=== PATIENT | male | born 1995 | race Caucasian/White ===

== ENCOUNTER 2018-10-25 13:27 | Emergency (ER) | payer BC, SELFPAY ==
[2018-10-25 13:47] VITALS: BP 126/57; PULSE 69; RESP 18; TEMP 36.5; O2SAT 97
--- NOTE | 2018-10-25 15:01 | W.ED.GENAD ---
Discharge Plan Disposition Patient Disposition: HOME Condition: Fair Discharge Details Chief Complaint: EyeProblem Clinical Impression: Abrasion, corneal, Foreign body in eye Reason For Visit: ? pink eye Primary Care Provider: Sunita,Local ED Provider: Riana Watkins Home Meds and New Rx's Prescriptions: No Action zolpidem [Ambien] 5 mg Tablet 5 mg PO RF: 0 Discharge Instructions Instructions: Erythromycin (Into the eye), Corneal Abrasion (ED) Additional Instructions: He erythromycin ointment as directed by nursing staff to your left eye 4 times daily for the next 5 days to help prevent infection. Please contact [facility] Saturday to schedule follow up for reevaluation and ensure healing. If you develop fever/chills, increased pain, discharge, visual changes or other new/worsening symptoms please seek care urgently once again. Discharge Data Discharge Date/Time-TO BE ENTERED AT DEPARTURE: 10/25/18 15:55 Medical Decision Making Patient is a 22-year-old male presenting today with chief complaint of irritation and foreign body sensation to the left eye. He reports a sensation began yesterday but seemed to worsen today. He reports that this morning when he woke up it was crusted shut. Was concerned for possible conjunctivitis. Was advised by pharmacist to be evaluated here. Patient denies any visual changes. Feels that he has scratching in the eye and a foreign body sensation. Denies any known trauma. States he was hiking yesterday but does not know of any foreign body material becoming lodged in the eye. Patient does not wear any corrective lenses. Plan to stain and evaluate the eye Regarding patient's eyelids, body was noted. Instilled tetracaine which helped with symptomatic management. Then instilled fluorescein dye. This was explored under slit-lamp. A small piece of what appears to be dirt was noted at the 10 o'clock position just lateral to the pupil. I was able to remove this with a Q-tip. Small corneal abrasion is noted inferior to this. Patient will be placed on erythromycin ophthalmic ointment. We discussed new/worsening symptoms when to seek care urgently once again. I advised follow-up with import export manager, he will contact [facility] Saturday to schedule prompt follow-up appointment for corneal abrasion and foreign body. I have also asked her care according to help facilitate follow-up. All of his questions and concerns were addressed and he is in agreement with this plan HPI General Mode of arrival: ambulatory. Date/Time Provider Initiated Documentation: 10/25/18 15:01. Limitations to Documentation: no limitations. Information obtained by: patient. History of Present Illness 22 year old M presents to the emergency department with the chief complaint of left eye injected, irritated, described as mild, Quality is described as other (scratchy with FB sensation), and is localized to the eyes. Patient reports no radiation. Patient started experiencing this day(s) (1) and it has been constant. other things that improve symptom(s), (has been using OTC drops which have helped with symptomatic management) No exacerbating factors reported . Patient notes no other symptoms.. Related Data Home Medications Medication Instructions Recorded Confirmed zolpidem [Ambien] 5 mg PO 10/25/18 Allergies Allergy/AdvReac Type Severity Reaction Status Date / Time No Known Allergies Allergy Unverified 10/25/18 13:51 General Stated Complaint: EyeProblem ALEXY: 4 Review of Systems Constitutional Reports as per HPI, Denies chills, Denies fever(s) and Denies headache(s) Eyes Reports as per HPI, Denies change in vision, Reports eye discharge (awoke with eye crusted this AM), Reports irritation, Denies itchy eyes and Denies eye pain (denies pain but feels irritated, has FB sensation) ENT Reports as per HPI, Denies headache(s), Denies nasal congestion, Denies nasal discharge and Denies sore throat Cardiovascular Reports as per HPI, Denies chest pain and Denies dyspnea Respiratory Denies cough and Denies dyspnea Gastrointestinal Reports as per HPI, Denies abdominal pain, Denies change in bowel habits, Denies nausea and Denies vomiting Integumentary/Breasts Reports as per HPI and Denies rash Neurologic Denies headache(s) Allergic/Immunologic Denies itchy eyes [facility] Social History Smoking/Tobacco Use Status: Never Exam Const General: cooperative, healthy appearing, comfortable, no acute distress, well developed and well groomed Nutritional Appearance: average body habitus and well nourished Orientation: alert and awake [facility] Head: normal to inspection, normocephalic and atraumatic Ears: hearing grossly normal bilaterally General nose exam: external nose normal Face and sinus: normal facial exam, sinuses nontender and face symmetric Mouth: oral mucosae normal, lip normal, tongue normal, oropharynx normal and moist mucous membranes Eyes Alignment and Position: alignment normal and position normal Periorbital: periorbital findings normal Eyelids: eyelids normal Conjunctivae: conjunctival abnormality left conjunctival injection diffuse and discharge (tearing) Pupils: PERRL, normal by confrontation and accommodation normal EOM: EOM intact bilaterally Neck Neck: normal visual inspection, full ROM, no lymphadenopathy and no meningeal signs Resp Effort & Inspection: normal respiratory effort, able to speak in complete sentences and no respiratory distress Auscultation: clear to auscultation bilaterally, no rales, no rhonchi and no wheezes Cardio Rate: regular rate Rhythm: regular rhythm Heart Sounds: S1 normal and S2 normal Skin General skin exam: no rashes or lesions noted Neuro General: alert and awake Cognition: normal cognition Speech: speech normal Gait: normal gait Psych Appearance: grossly normal and well kempt Mental Status: mental status grossly normal Speech and Movement: speech and movement normal Course Vital Signs Temperature 36.5 C 10/25/18 13:47 Pulse 69 10/25/18 13:47 Respiratory Rate 18 10/25/18 13:47 Blood Pressure 126/57 L 10/25/18 13:47 Pulse Oximetry 97 10/25/18 13:47 Temperature 36.5 C 10/25/18 13:47 Temperature Source Temporal Artery Scan 10/25/18 13:47 Pulse 69 10/25/18 13:47 Respiratory Rate 18 10/25/18 13:47 Blood Pressure 126/57 L 10/25/18 13:47 Blood Pressure Position Sitting 10/25/18 13:47 Pulse Oximetry 97 10/25/18 13:47 Oxygen Delivery Method Room Air 10/25/18 13:47 Oxygen Flow Rate 0 10/25/18 13:47
--- NOTE | 2018-10-25 15:13 | ED.GENADUL_ITS ---
Discharge Plan Disposition Patient Disposition: HOME Condition: Fair Discharge Details Chief Complaint: EyeProblem Clinical Impression: Abrasion, corneal, Foreign body in eye Reason For Visit: ? pink eye Primary Care Provider: Sunita,Local ED Provider: Riana Watkins Home Meds and New Rx's Prescriptions: No Action zolpidem [Ambien] 5 mg Tablet 5 mg PO RF: 0 Discharge Instructions Instructions: Erythromycin (Into the eye), Corneal Abrasion (ED) Additional Instructions: He erythromycin ointment as directed by nursing staff to your left eye 4 times daily for the next 5 days to help prevent infection. Please contact [facility] Saturday to schedule follow up for reevaluation and ensure healing. If you develop fever/chills, increased pain, discharge, visual changes or other new/worsening symptoms please seek care urgently once again. Discharge Data Discharge Date/Time-TO BE ENTERED AT DEPARTURE: 10/25/18 15:55 Medical Decision Making Patient is a 22-year-old male presenting today with chief complaint of irritation and foreign body sensation to the left eye. He reports a sensation began yesterday but seemed to worsen today. He reports that this morning when he woke up it was crusted shut. Was concerned for possible conjunctivitis. Was advised by pharmacist to be evaluated here. Patient denies any visual changes. Feels that he has scratching in the eye and a foreign body sensation. Denies any known trauma. States he was hiking yesterday but does not know of any foreign body material becoming lodged in the eye. Patient does not wear any corrective lenses. Plan to stain and evaluate the eye Regarding patient's eyelids, body was noted. Instilled tetracaine which helped with symptomatic management. Then instilled fluorescein dye. This was explored under slit-lamp. A small piece of what appears to be dirt was noted at the 10 o'clock position just lateral to the pupil. I was able to remove this with a Q-tip. Small corneal abrasion is noted inferior to this. Patient will be placed on erythromycin ophthalmic ointment. We discussed new/worsening symptoms when to seek care urgently once again. I advised follow- up with internal sales engineer, he will contact [facility] Saturday to schedule prompt follow-up appointment for corneal abrasion and foreign body. I have also asked her care according to help facilitate follow-up. All of his questions and concerns were addressed and he is in agreement with this plan HPI General Mode of arrival: ambulatory . Date/Time Provider Initiated Documentation: 10/25/18 15:01 . Limitations to Documentation: no limitations . Information obtained by: patient . History of Present Illness 22 year old M presents to the emergency department with the chief complaint of left eye injected, irritated, described as mild, Quality is described as other (scratchy with FB sensation), and is localized to the eyes. Patient reports no radiation. Patient started experiencing this day(s) (1) and it has been constant. other things that improve symptom(s), (has been using OTC drops which have helped with symptomatic management) No exacerbating factors reported . Patient notes no other symptoms.. Related Data Home Medications Medication Instructions Recorded Confirmed zolpidem [Ambien] 5 mg PO 10/25/18 Allergies Allergy/AdvReac Type Severity Reaction Status Date / Time No Known Allergies Allergy Unverified 10/25/18 13:51 General Stated Complaint: EyeProblem ALEXY: 4 Review of Systems Constitutional Reports as per HPI, Denies chills, Denies fever(s) and Denies headache(s) Eyes Reports as per HPI, Denies change in vision, Reports eye discharge (awoke with eye crusted this AM), Reports irritation, Denies itchy eyes and Denies eye pain (denies pain but feels irritated, has FB sensation) ENT Reports as per HPI, Denies headache(s), Denies nasal congestion, Denies nasal discharge and Denies sore throat Cardiovascular Reports as per HPI, Denies chest pain and Denies dyspnea Respiratory Denies cough and Denies dyspnea Gastrointestinal Reports as per HPI, Denies abdominal pain, Denies change in bowel habits, Denies nausea and Denies vomiting Integumentary/Breasts Reports as per HPI and Denies rash Neurologic Denies headache(s) Allergic/Immunologic Denies itchy eyes [facility] Social History Smoking/Tobacco Use Status: Never Exam Const General: cooperative, healthy appearing, comfortable, no acute distress, well developed and well groomed Nutritional Appearance: average body habitus and well nourished Orientation: alert and awake [facility] Head: normal to inspection, normocephalic and atraumatic Ears: hearing grossly normal bilaterally General nose exam: external nose normal Face and sinus: normal facial exam, sinuses nontender and face symmetric Mouth: oral mucosae normal, lip normal, tongue normal, oropharynx normal and moist mucous membranes Eyes Alignment and Position: alignment normal and position normal Periorbital: periorbital findings normal Eyelids: eyelids normal Conjunctivae: conjunctival abnormality left conjunctival injection diffuse and discharge (tearing) Pupils: PERRL, normal by confrontation and accommodation normal EOM: EOM intact bilaterally Neck Neck: normal visual inspection, full ROM, no lymphadenopathy and no meningeal signs Resp Effort & Inspection: normal respiratory effort, able to speak in complete sentences and no respiratory distress Auscultation: clear to auscultation bilaterally, no rales, no rhonchi and no wheezes Cardio Rate: regular rate Rhythm: regular rhythm Heart Sounds: S1 normal and S2 normal Skin General skin exam: no rashes or lesions noted Neuro General: alert and awake Cognition: normal cognition Speech: speech normal Gait: normal gait Psych Appearance: grossly normal and well kempt Mental Status: mental status grossly normal Speech and Movement: speech and movement normal Course Vital Signs Temperature 36.5 C 10/25/18 13:47 Pulse 69 10/25/18 13:47 Respiratory Rate 18 10/25/18 13:47 Blood Pressure 126/57 L 10/25/18 13:47 Pulse Oximetry 97 10/25/18 13:47 Temperature 36.5 C 10/25/18 13:47 Temperature Source Temporal Artery Scan 10/25/18 13:47 Pulse 69 10/25/18 13:47 Respiratory Rate 18 10/25/18 13:47 Blood Pressure 126/57 L 10/25/18 13:47 Blood Pressure Position Sitting 10/25/18 13:47 Pulse Oximetry 97 10/25/18 13:47 Oxygen Delivery Method Room Air 10/25/18 13:47 Oxygen Flow Rate 0 10/25/18 13:47
[2018-10-25] MEDS: Tetracaine 0.5% 4 ML BTL OP (15:15)
[2018-10-25] MEDS: Fluorescein STRIPS 100/BOX 1 MG OP (15:15)
[2018-10-25] MEDS: Erythromycin Ophth Oint 3.5 GM TUBE OS (15:45)
--- NOTE | 2018-10-27 12:17 | CMPROGNOTE_ITS ---
Care Management Progress Note 10/27-Riana MCNAMARA requested assistance with a [facility] f/u on Saturday/Saturday for corneal abrasion, foreign body. Referral, demographics, and provider note faxed to [facility] this am.
== END 2018-10-25 15:55 | disposition home or self-care (01) ==
PROVIDERS: Emergency Provider Physician Assistant
DX: S05.02XA Injury of conjunctiva and corneal abrasion without foreign body, left eye, initial encounter (principal); X58.XXXA Exposure to other specified factors, initial encounter
CPT/HCPCS: 99283

== ENCOUNTER 2018-12-23 21:03 | Emergency (ER) | payer OTHER, SELFPAY ==
[2018-12-23 21:11] VITALS: BP 135/67; PULSE 86; RESP 16; TEMP 36.8
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
== END 2018-12-23 21:30 | disposition home or self-care (01) ==
PROVIDERS: Emergency Provider Emergency Medicine
DX: S16.1XXA Strain of muscle, fascia and tendon at neck level, initial encounter (principal); V43.52XA Car driver injured in collision with other type car in traffic accident, initial encounter
CPT/HCPCS: 99282

== ENCOUNTER 2019-03-19 18:21 | Emergency (ER) | payer BC, SELFPAY ==
[2019-03-19 18:24] VITALS: BP 110/74; PULSE 65; RESP 18; TEMP 36.8
[2019-03-19] MEDS: Balanced Salt Solution 15 ML BTL OP (19:32)
--- NOTE | 2019-03-19 20:15 | ED.GENADUL_ITS ---
Discharge Plan Disposition Patient Disposition: HOME Condition: Stable Discharge Details Chief Complaint: EyeProblem Clinical Impression: Foreign body of left external eye Primary Care Provider: [facility] Provider: Jamar Quiroga Home Meds and New Rx's Prescriptions: Continued zolpidem [Ambien] 5 mg Tablet 5 mg PO HS RF: 0 fluvoxamine 150 mg Capsule,Extended Release 24hr 150 mg PO DAILY RF: 0 Discharge Instructions Instructions: Corneal Abrasion (ED) Additional Instructions: Please use the provided ointment 4 times daily for the next 3 to 5 days. If not improving over the next couple days please follow-up with [facility] for reassessment or return to the emergency department for any new or significant worsening of symptoms Referrals: [facility] [Outside] Discharge Data Discharge Date/Time-TO BE ENTERED AT DEPARTURE: 03/19/19 20:43 Medical Decision Making Foreign body sensation in left eye, patient does state working outside in dust and debris but denies any known foreign body getting in his eye. Patient states during his wait for my assessment he does feel like the foreign body did come out but still has slightly irritation to the eye. Eye exam is unremarkable except for some very slight linear dye uptake on the conjunctive in the 7:00 and 6 o'clock position. No foreign body was noted. Patient placed up on erythromycin ointment and return precautions were discussed. HPI General Mode of arrival: ambulatory . Date/Time Provider Initiated Documentation: 03/19/19 18:27 . Limitations to Documentation: no limitations . Information obtained by: patient and RN notes reviewed . History of Present Illness 23 year old M presents to the emergency department with the chief complaint of left eye foreign body, described as moderate, with intensity rated at 4. Quality is described as aching, and is localized to the eyes and left. Patient reports no radiation. Patient started experiencing this hour(s) (2) and it has been constant. Patient notes no other symptoms.. Patient did receive the following treatments prior to arrival, none Related Data Home Medications Medication Instructions Recorded Confirmed zolpidem [Ambien] 5 mg PO HS 10/25/18 03/19/19 fluvoxamine 150 mg PO DAILY 12/23/18 03/19/19 Allergies Allergy/AdvReac Type Severity Reaction Status Date / Time No Known Allergies Allergy Unverified 12/23/18 21:10 General Stated Complaint: EyeProblem ALEXY: 4 Review of Systems Constitutional Denies headache(s) Eyes Reports as per HPI, Denies change in vision, Denies eye discharge, Reports eye pain and Denies photophobia ENT Denies facial pain and Denies headache(s) Neurologic Denies headache(s) and Denies other visual disturbances PFSH Social History Smoking/Tobacco Use Status: Never Alcohol Intake: never Drug use: Never Substance use type: does not use Do you feel safe at home: Yes Do you feel safe in your relationship?: Yes Exam Const General: cooperative, no acute distress and not ill appearing Orientation: alert, awake and oriented x3 Eyes General: appearance normal, both eyes and all related structures Visual Bhagat: normal visual bhagat by confrontation Periorbital: periorbital findings normal Conjunctivae: conjunctival abnormality left other (Linear dye uptake 6 & 7 o'clock ) Sclera: sclerae normal Cornea: corneas normal and fluorescein used Pupils: PERRL, normal by confrontation and accommodation normal EOM: EOM intact bilaterally and No nystagmus Resp Effort & Inspection: normal respiratory effort, able to speak in complete sentences and no respiratory distress Neuro Cranial Nerves: no nystagmus Course Vital Signs Temperature 36.8 C 03/19/19 18:24 Pulse 65 03/19/19 18:24 Respiratory Rate 18 03/19/19 18:24 Blood Pressure 110/74 03/19/19 18:24 Temperature 36.8 C 03/19/19 18:24 Temperature Source Temporal Artery Scan 03/19/19 18:24 Pulse 65 03/19/19 18:24 Respiratory Rate 18 03/19/19 18:24 Blood Pressure 110/74 03/19/19 18:24 Blood Pressure Position Sitting 03/19/19 18:24 Oxygen Delivery Method Room Air 03/19/19 18:24 Oxygen Flow Rate 0 03/19/19 18:24
== END 2019-03-19 20:43 | disposition home or self-care (01) ==
PROVIDERS: Emergency Provider Nurse Practitioner Family
DX: T15.92XA Foreign body on external eye, part unspecified, left eye, initial encounter (principal)
CPT/HCPCS: 99283

== ENCOUNTER 2019-07-03 13:11 | Emergency (ER) | payer BC, SELFPAY ==
[2019-07-03 13:13] VITALS: BP 132/68; PULSE 66; RESP 16; TEMP 36.3; O2SAT 100
--- NOTE | 2019-07-03 14:14 | W.ED.GENAD ---
Discharge Plan Disposition Patient Disposition: HOME Discharge Details Chief Complaint: RashLesion Clinical Impression: Rash [facility] Manish Benavides Home Meds and New Rx's Prescriptions: New diphenhydramine HCl [Benadryl] 25 mg capsule 25 mg PO TID PRN (Reason: itching) Qty: 30 RF: 0 Continued zolpidem [Ambien] 5 mg Tablet 5 mg PO HS RF: 0 fluvoxamine 150 mg Capsule,Extended Release 24hr 150 mg PO DAILY RF: 0 Discharge Instructions Instructions: Acute Rash (ED) Additional Instructions: Take Benadryl 25 mg by mouth every 8 hours as needed for itching. Please contact your primary care physician to arrange follow-up. Return to the ER for any worsening or new concerning symptoms. Discharge Data Discharge Date/Time-TO BE ENTERED AT DEPARTURE: 07/03/19 14:37 Medical Decision Making 23-year-old male here with fine red itchy rash flanks, groin, upper extremities. Patient is afebrile. He does have recent mild URI symptoms. Consider viral rash. Consider also mild allergic reaction or contact dermatitis. Plan to treat with Benadryl. I encouraged him to follow-up with his primary care physician and instructed him to return immediately should have any worsening or new concerning symptoms. HPI General Mode of arrival: ambulatory. Date/Time Provider Initiated Documentation: 07/03/19 13:41. Limitations to Documentation: no limitations. Information obtained by: patient. HPI Narrative: 23-year-old male presents with chief complaint of rash. Patient notes that over the past day he has had a itchy rash involving his arms, bilateral flanks, groin and upper legs. Patient notes rash is itchy. Patient also notes he has runny nose and mild sore throat over the past day. Denies fever. Patient denies any new foods, exposure to new potential allergens. No new fragrances or soaps. Patient does note he did recently return from a 10-day canoe hiking trip where he did not shower and was wearing dirty clothes. He denies tick bite or any known insect bite. Related Data Home Medications Medication Instructions Recorded Confirmed zolpidem [Ambien] 5 mg PO HS 10/25/18 07/03/19 fluvoxamine 150 mg PO DAILY 12/23/18 07/03/19 diphenhydramine HCl [Benadryl] 25 mg PO TID PRN #30 cap 07/03/19 Previous Rx's Medication Instructions Recorded diphenhydramine HCl [Benadryl] 25 mg PO TID PRN #30 cap 07/03/19 Allergies Allergy/AdvReac Type Severity Reaction Status Date / Time No Known Allergies Allergy Unverified 07/03/19 13:17 General Stated Complaint: RashLesion ALEXY: 4 Review of Systems Review of Systems ROS Unobtainable: All systems reviewed & are unremarkable except as noted in HPI and below Constitutional Constitutional: Denies fever(s) ENT Ears, Nose, Mouth, and Throat: Reports as per HPI Cardiovascular Cardiovascular: Denies dyspnea Respiratory Respiratory: Denies dyspnea Genitourinary Genitourinary: Denies genital lesions, Denies genital pain, Denies penile discharge and Denies scrotal swelling Integumentary/Breasts Skin/Breast: Reports as per HPI and Reports rash [facility] Social History Smoking/Tobacco Use Status: Never Alcohol Intake: never Drug use: Never Substance use type: does not use Do you feel safe at home: Yes Do you feel safe in your relationship?: Yes Exam Const General: cooperative and no acute distress HENMT Head: normocephalic and atraumatic Mouth: moist mucous membranes Throat: uvula midline and posterior oropharynx abnormal erythema (Mild); no cobblstoning, no edema and no exudates Eyes Conjunctivae: normal conjunctivae Sclera: normal sclerae Neck Neck: trachea midline and supple Resp Auscultation: clear to auscultation bilaterally, no rales, no rhonchi and no wheezes Cardio Jugular venous pressure: no JVD Rate: regular rate and not tachycardic Rhythm: regular rhythm GI Palpation: soft, not firm, no guarding, no masses, not rigid and nontender Skin Rashes: rashes noted (Fine red papules in her arms, groin, flanks) Neuro General: alert, awake and tone normal Extrem General: no edema Psych Appearance: grossly normal Course Vital Signs Vital signs: Vital Signs Temperature 36.3 C L 07/03/19 13:13 Pulse 66 07/03/19 13:13 Respiratory Rate 16 07/03/19 13:13 Blood Pressure 132/68 07/03/19 13:13 Pulse Oximetry 100 07/03/19 13:13 Temperature 36.3 C L 07/03/19 13:13 Temperature Source Skin 07/03/19 13:13 Pulse 66 07/03/19 13:13 Respiratory Rate 16 07/03/19 13:13 Respiratory Effort Non-Labored 07/03/19 13:18 Blood Pressure 132/68 07/03/19 13:13 Blood Pressure Position Sitting 07/03/19 13:13 Pulse Oximetry 100 07/03/19 13:13 Oxygen Delivery Method Room Air 07/03/19 13:13 Oxygen Flow Rate 0 07/03/19 13:13
[2019-07-03] MEDS: diphenhydrAMINE 25 MG CAP PO (14:19)
[2019-07-03 14:35] VITALS: BP 132/68; PULSE 66; RESP 16; O2SAT 100
== END 2019-07-03 14:37 | disposition home or self-care (01) ==
PROVIDERS: Emergency Provider Student in an Organized Health Care Education/Training Program
DX: R21 Rash and other nonspecific skin eruption (principal)
CPT/HCPCS: 99283

== ENCOUNTER 2020-05-03 19:22 | Emergency (ER) | payer BC, SELFPAY ==
[2020-05-03 19:28] VITALS: BP 161/95; PULSE 71; RESP 14; TEMP 36.2; O2SAT 98
--- NOTE | 2020-05-03 19:30 | DI.CT_ITS ---
EXAM: CT ABDOMEN PELVIS W CLINICAL HISTORY: right lower abdominal pain TECHNIQUE: COMPARISON: No exams were available for comparison FINDINGS: CT examination of the abdomen and pelvis was performed with bolus infusion of 100 cc of Omnipaque 350 There is bilateral L4 spondylolysis without significant spondylolisthesis. Images obtained through th e lung bases are unremarkable. The liver and spleen appear normal as does the pancreas. Gallbladder and bile ducts are unremarkable. Adrenals appear normal bilaterally. Kidneys appear normal with no evidence of renal mass, hydronephro sis, or nephrolithiasis There is marked urinary bladder distention, uncertain etiology. There is no evidence of abdominal or pelvic adenopathy. Abdominal aorta is of normal diameter and no major vascular abnormality is seen. Appendix is normal. No evidence diverticulitis or bowel obstruction. No significant abdominal wall hernia seen. Impression: Negative examination of the abdomen and pelvis except for marked urinary bladder distention. Please c orrelate clinically. RADIATION DOSE DELIVERED: 736.36mGy.cm Total DLP DATA REPOSITORY: All CT scans at this facility are submitted to the National Radiology Data Registry (NRDR) Dose Index Registry (DIR) with the [employer] (A[employer]). RADIATION OPTIMIZATION: All CT scans at this facility use at least one of these dose optimization te chniques: automated exposure control; mA and/or kV adjustment per patient size (includes targeted exa ms where dose is matched to clinical indication); or iterative reconstruction.
--- NOTE | 2020-05-03 19:40 | ED.GENADUL_ITS ---
Discharge Plan Disposition Patient Disposition: HOME Condition: Good Discharge Details Chief Complaint: Abd Prob Clinical Impression: Abdominal pain, Urinary retention Primary Care Provider: [facility] Provider: Delfino Espinoza Home Meds and New Rx's Prescriptions: Continued diphenhydramine HCl [Benadryl] 25 mg capsule 25 mg PO TID PRN (Reason: itching) Qty: 30 RF: 0 zolpidem [Ambien] 5 mg Tablet 5 mg PO HS RF: 0 fluvoxamine 150 mg Capsule,Extended Release 24hr 150 mg PO DAILY RF: 0 Discharge Instructions Instructions: Abdominal Pain (ED) Additional Instructions: Please try to void at least every 4-6 hours and empty her bladder. Contact Dr. Weinstein for follow-up. Return to ED if you develop fever, vomiting, worsening pain, inability to urinate. Referrals: Dominguez Weinstein MD [ [facility] STAFF PHYSICIAN] - Medical Decision Making <Ismael Ivan MD - Last Filed: 05/03/20 19:44> 24 yo male with no prior abdominal surgeries comes in with lower abdominal pain worsening since this morning. Denies fevers, n/v and has never had pain like this in the past. Does do a lot of heavy lifting at work and thinks he may have strained the wall of his abdomen. Has tenderness with deep palpation to right lower quadrant no guarding or rebound. No testicle pain or swelling no tenderness. Suspect muscle wall strain but advised can't reliably exclude appendicitis without imaging and after discussing risks/benefits of watchful waiting vs CT he would like to proceed with CT imaging. Will obtain labs to eval for pancreatitis and ct imaging to eval for appendicitis pt signed out to oncoming provider pending labs and imaging Differential Diagnosis Differential Diagnosis: appendicitis, muscle wall strain, diverticulitis <Delfino Espinoza MD - Last Filed: 05/03/20 21:04> Patient had presented with abdominal pain mostly right lower quadrant. Seen initially by Dr. Ivan, please see his initial note for presentation. Signed out to me pending laboratory studies and CT scan. Laboratory studies are essentially normal. Urinalysis with trace blood but micro negative. CT scan is significant for distended urinary bladder with bilateral hydroureter. On my exam patient bladder definitely distended. However abdomen appeared benign. Dr. Ivan had reported to me a normal exam. Patient denies being sexually active. He denies having difficulty urinating though he states he feels like he needs to urinate a fair amount. Had him go to the bathroom and when he returned bladder scan was performed. Residual was only 75 mL's. Reexam of abdomen was completely soft and nontender. 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 He does not have primary care. I will refer him to Dr. Weinstein for evaluation while he is up here. I have asked him to be sure to void every 4-6 hours and completely empty his bladder when he does. Return to ED if he develops fever, vomiting, worsening pain, inability to urinate, other concerns or problems. Lab Data Lab results reviewed: Yes I reviewed the patient's lab results. HPI <Ismael Ivan MD - Last Filed: 05/03/20 19:44> General Mode of arrival: ambulatory . Date/Time Provider Initiated Documentation: 05/03/20 19:34 . Limitations to Documentation: no limitations . Information obtained by: patient . History of Present Illness 24 year old M presents to the emergency department with the chief complaint of abdominal pain, described as moderate, Patient started experiencing this hour(s) (12) and it has been constant. No relieving factors improve symptom(s), No exacerbating factors reported . Patient notes no other symptoms.. Patient did receive the following treatments prior to arrival, NSAID Related Data Home Medications Medication Instructions Recorded Confirmed zolpidem [Ambien] 5 mg PO HS 10/25/18 05/03/20 fluvoxamine 150 mg PO DAILY 12/23/18 05/03/20 diphenhydramine HCl [Benadryl] 25 mg PO TID PRN #30 cap 07/03/19 05/03/20 Previous Rx's Medication Instructions Recorded diphenhydramine HCl [Benadryl] 25 mg PO TID PRN #30 cap 07/03/19 Allergies Allergy/AdvReac Type Severity Reaction Status Date / Time No Known Allergies Allergy Unverified 05/03/20 19:33 General Stated Complaint: Abd Prob ALEXY: 3 Review of Systems <Ismael Ivan MD - Last Filed: 05/03/20 19:44> All systems reviewed & are unremarkable except as noted in HPI and below Constitutional Constitutional: Denies chills, Denies fever(s) and Denies weakness Cardiovascular Cardiovascular: Denies chest pain and Denies dyspnea Respiratory Respiratory: Denies cough and Denies dyspnea Gastrointestinal Gastrointestinal: Denies nausea and Denies vomiting Genitourinary Genitourinary: Denies dysuria Musculoskeletal Musculoskeletal: Denies joint swelling Integumentary/Breasts Skin/Breast: Denies rash Neurologic Neurologic: Denies weakness Psychiatric Psychiatric: Denies depression PFSH <Ismael Ivan MD - Last Filed: 05/03/20 19:44> Social History Smoking/Tobacco Use Status: Never Alcohol Intake: never Drug use: Never Substance use type: does not use Do you feel safe at home: Yes Do you feel safe in your relationship?: Yes Exam <Ismael Ivan MD - Last Filed: 05/03/20 19:44> Const General: no acute distress Orientation: alert HENMT Head: normal to inspection Ears: external ears normal General nose exam: external nose normal Mouth: moist mucous membranes Eyes General: appearance normal, both eyes and all related structures Neck Neck: normal visual inspection Resp Effort & Inspection: normal respiratory effort and able to speak in complete sentences Cardio Rate: regular rate GI Palpation: soft Skin General skin exam: no rashes or lesions noted Neuro General: patient alert and patient oriented x3 Extrem General: normal to inspection Psych Mental Status: mental status grossly normal Course <Ismael Ivan MD - Last Filed: 05/03/20 19:44> Vital Signs Vital signs: Vital Signs Temperature 36.2 C L 05/03/20 19:28 Pulse 71 05/03/20 19:28 Respiratory Rate 14 05/03/20 19:28 Blood Pressure 161/95 H 05/03/20 19:28 Pulse Oximetry 98 05/03/20 19:28 Temperature 36.2 C L 05/03/20 19:28 Temperature Source Tympanic 05/03/20 19:28 Pulse 71 05/03/20 19:28 Respiratory Rate 14 05/03/20 19:28 Respiratory Effort Non-Labored 05/03/20 19:30 Blood Pressure 161/95 H 05/03/20 19:28 Blood Pressure Position Sitting 05/03/20 19:28 Pulse Oximetry 98 05/03/20 19:28 Oxygen Delivery Method Room Air 05/03/20 19:28 Oxygen Flow Rate 0 05/03/20 19:28 Pain Level 3 05/03/20 19:30 Sign Out <Ismael Ivan MD - Last Filed: 05/03/20 19:44> Sign Out Data: Sign Out Comment: abdominal pain, labs and imaging and reassess Last updated by Ismael Ivan MD at 05/03/20 19:44
[2020-05-03] MEDS: Normal Saline 1,000 ML 1000 ML IV (19:50)
[2020-05-03 19:52] LABS: Abs Immature Grans 0.03 10^3/uL (0.0-0.06); Absolute Basophil Count 0.01 10^3/uL (0.0-0.2); Absolute Eosinophil Count 0.01 10^3/uL (0.0-0.7); Absolute Lymphocyte Count 1.15 10^3/uL (1.2-3.4); Absolute Monocyte Count 0.52 10^3/uL (0.1-0.8); Basophils % 0.2; Eosinophils % 0.2; HCT 41.4 % (40.0-50.0); HGB 13.8 g/dL (13.5-17.5); Immature Grans % 0.5; Lymphocytes % 18.5; MCH 29.6 pg (27.0-33.0); MCHC 33.3 % (32.0-36.0); MCV 88.7 fL (80-95); MPV 9.6 fL (8.0-11.0); Monocytes % 8.4; Neutrophils % 72.2; Nucleated RBC 0 %; Platelet Count 233 10^3/uL (130-400); RBC 4.67 10^6/uL (4.36-5.78); RDW 11.9 % (11.8-14.1); RDW-SD 38.5 fL; WBC 6.22 10^3/uL (4.4-10.8)
[2020-05-03] MEDS: Normal Saline Flush 10 ML SYR IVP (20:06)
[2020-05-03 20:07] LABS: ALT 30 U/L (16-63); AST 21 U/L (15-37); Albumin 4.4 g/dL (3.4-5.0); Alkaline Phosphatase 67 U/L (46-116); Anion Gap 8.6 mmol/L (3-11); BUN 14 mg/dL (7-18); Bilirubin, Direct 0.07 mg/dL (0.00-0.20); Bilirubin, Total 0.3 mg/dL (0.2-1.0); CO2 29.4 mmol/L (21.0-32.0); CREATININE 0.94 mg/dL (0.70-1.30); Calcium 9.6 mg/dL (8.5-10.1); Chloride 102 mmol/L (98-107); Glucose 102 mg/dL (74-106); Lipase 99 U/L (73-393); Potassium 3.6 mmol/L (3.5-5.1); Sodium 140 mmol/L (136-145); Total Protein 7.7 g/dL (6.4-8.2)
[2020-05-03] MEDS: Normal Saline - Diluent 50 ML VIAL IV (20:07)
[2020-05-03] MEDS: Omnipaque 350 MG/ML 100 ML BTL IJ (20:08)
[2020-05-03 20:26] LABS: Bilirubin Negative (Negative); Blood Trace-intact (Negative); Clarity Clear (Clear); Glucose Negative (Negative); Ketones Negative (Negative); Leukocyte Esterase Negative (Negative); Nitrite Negative (Negative); Urobilinogen 0.2 EU/dL (Up TO 0.2); pH 6.5 (5-8)
--- NOTE | 2020-05-03 20:32 | DI.VRAD_ITS ---
PROCEDURE INFORMATION: Exam: CT Abdomen And Pelvis With Contrast Exam date and time: 05/03/2020 7:41 PM Age: 24 years old Clinical indication: Abdominal pain; Other: Right lower abd pain TECHNIQUE: Imaging protocol: Computed tomography of the abdomen and pelvis with intravenous contrast. Radiation optimization: All CT scans at this facility use at least one of these dose optimization techniques: automated exposure control; mA and/or kV adjustment per patient size (includes targeted exams where dose is matched to clinical indication); or iterative reconstruction. Contrast material: OMNIPAQUE 350; Contrast volume: 100 ml; Contrast route: INTRAVENOUS (IV); COMPARISON: No relevant prior studies available. FINDINGS: Liver: Normal. No mass. Gallbladder and bile ducts: Normal. No calcified stones. No ductal dilation. Pancreas: Normal. No ductal dilation. Spleen: Small splenule medial to the spleen. Adrenals: Normal. No mass. Kidneys and ureters: Abnormally distended right and left ureters. Stomach and bowel: Radiopaque density within the stomach and portions of the small bowel may represent calcium. Appendix: The appendix is not identified. Moderate solid stool load. Intraperitoneal space: Unremarkable. No free air. No significant fluid collection. Vasculature: Unremarkable. No abdominal aortic aneurysm. Lymph nodes: Unremarkable. No enlarged lymph nodes. Bladder: Marked urinary bladder distension with the dome at L5 vertebral body level. If patient is unable to void they may benefit from a Crump catheter. Reproductive: Unremarkable as visualized. Bones/joints: Unremarkable. No acute fracture. Soft tissues: Umbilical hernia. IMPRESSION: 1. Markedly distended urinary bladder with dilated ureters bilaterally of concern for bladder outlet obstruction or neurologic bladder. If patient is unable to completely void, patient may benefit from a Crump catheter. 2. Radiopaque density within the the stomach and small bowel may represent calcium. Dictated and Authenticated by: Gloria Bonilla MD. Ordering:GINO Guevara MD
[2020-05-03 20:35] LABS: Bacteria Negative HPF (Negative); C & S Indicated? No; Casts Negative LPF (Negative); Crystals Negative HPF (Negative); Epithelial Cells Negative HPF (Negative); Mucus Negative (Negative); Other Cells Negative (Negative); RBC Negative HPF (0-2); WBC Negative HPF (0-5)
--- NOTE | 2020-05-03 20:50 | NUR.NOTE ---
Pt up to BR to void, states he feels like he emptied his bladder, PVR 75mL. MD Alexis sepulveda.
[2020-05-03 20:55] VITALS: BP 153/90; PULSE 71; RESP 16; TEMP 36.9; O2SAT 98
--- NOTE | 2020-05-04 16:05 | NUR.NOTE ---
Referral [facility].Nursing Note:
== END 2020-05-03 21:05 | disposition home or self-care (01) ==
LOC: ER 21:03
PROVIDERS: Emergency Medicine; Emergency Provider Emergency Medicine
DX: R33.8 Other retention of urine (principal); R10.31 Right lower quadrant pain; N13.4 Hydroureter
CPT/HCPCS: 36415; 80053; 83690; 96360; 99285; 74177; 81003; 81015; 82248; 85025; 99284; J3490

== ENCOUNTER 2020-05-14 09:51 | Emergency (ER) | payer BC, SELFPAY ==
[2020-05-14 09:54] VITALS: BP 126/75; PULSE 70; RESP 16; TEMP 36.7; O2SAT 987
[2020-05-14 10:08] LABS: Bilirubin Negative (Negative); Blood Negative (Negative); Clarity Clear (Clear); Glucose Negative (Negative); Ketones Negative (Negative); Leukocyte Esterase Trace (Negative); Nitrite Negative (Negative); Specific Gravity 1.015 (1.005-1.025); Urobilinogen 0.2 EU/dL (Up TO 0.2); pH 7.5 (5-8)
--- NOTE | 2020-05-14 10:15 | ED.GENADUL_ITS ---
Discharge Plan Disposition Patient Disposition: HOME Condition: Improving Discharge Details Chief Complaint: Abd Prob Clinical Impression: Urinary tract infection, Constipation Primary Care Provider: Sunita,Local ED Provider: Cooper Vang Home Meds and New Rx's Prescriptions: New docusate sodium [Dulcolax Stool Softener (dss)] 100 mg capsule 100 mg PO DAILY Qty: 7 RF: 0 levofloxacin [Levaquin] 500 mg tablet 500 mg PO DAILY Qty: 5 RF: 0 Continued zolpidem [Ambien] 5 mg Tablet 5 mg PO HS RF: 0 fluvoxamine 150 mg Capsule,Extended Release 24hr 150 mg PO DAILY RF: 0 Discontinued diphenhydramine HCl [Benadryl] 25 mg capsule 25 mg PO TID PRN (Reason: itching) Qty: 30 RF: 0 loperamide [Imodium A-D] 2 mg Tablet 2 mg PO QID PRNRF: 0 Discharge Instructions Instructions: Constipation (ED), Urinary Tract Infection in Men (ED) Additional Instructions: Our care management team will assist you in making a follow-up appointment to establish primary care. Please take Dulcolax as prescribed at nighttime while feeling constipated. Take Levaquin as prescribed for urinary tract infection. Return to the emergency department for any acute concerns. Medical Decision Making 24-year-old male seen May 03 in the ER for lower abdominal pain. At that time he had a CT scan of the abdomen pelvis was notable for urinary retention in the context of taking Benadryl for a plant dermatitis. He now has ongoing lower abdominal pain intermittently over days time. He is well-appearing with an unremarkable exam. His urine does show evidence of leuk esterase, bacteria no crystals or epithelial cells. Plain radiographs with constipation. Labs noted white count of 3.5 hematocrit 41, platelets 227. Chemistries unremarkable. Consistent with mild constipation and urinary tract infection. Patient is adamant that he is not sexually active. Not circumcised. We will add Dulcolax and have him stop Imodium for his constipation. I will treat him with a course of Levaquin for UTI. He will need to establish local care in this area and will ask care management to assist in this for follow-up. Lab Data Lab results reviewed: Yes I reviewed the patient's lab results. Labs: Laboratory Results - last 24 hr 05/14/20 05/14/20 10:02 10:46 WBC 3.51 L RBC 4.69 Hgb 13.9 Hct 41.0 MCV 87.4 MCH 29.6 MCHC 33.9 RDW 11.8 Plt Count 227 MPV 9.7 Immature Gran % 0.3 Neutrophils % 65.4 Lymphocytes % 23.1 Monocytes % 9.4 Eosinophils % 0.9 Basophils % 0.9 Absolute Neutrophils 2.30 Absolute Lymphocytes 0.81 L Absolute Monocytes 0.33 Absolute Eosinophils 0.03 Absolute Basophils 0.03 Urine Color Yellow Urine Clarity Clear Urine pH 7.5 Ur Specific Alice 1.015 Urine Protein Negative Urine Ketones Negative Urine Blood Negative Urine Nitrite Negative Urine Bilirubin Negative Urine Urobilinogen 0.2 Ur Leukocyte Esterase Trace H Urine RBC 0-2 Urine WBC 0-2 Ur Epithelial Cells Negative Urine Crystals Negative Urine Bacteria Rare Urine Casts Negative Urine Mucus Negative Urine Other Rare renal Ur Culture Indicated? Yes Urine Glucose Negative HPI General Mode of arrival: ambulatory . Date/Time Provider Initiated Documentation: 05/14/20 09:53 . Limitations to Documentation: no limitations . Information obtained by: patient . History of Present Illness 24 year old M presents to the emergency department with the chief complaint of Lower abdominal pain, described as moderate and similar to prior episodes, and is localized to the abdomen. Patient reports no radiation. Patient started experiencing this day(s) and it has been intermittent. No relieving factors improve symptom(s), No exacerbating factors reported . Patient notes denies fever/chills, loss of appetite and nausea/vomiting. Patient did receive the following treatments prior to arrival, other (Stop taking Benadryl. Normal urination.) Related Data Home Medications Medication Instructions Recorded Confirmed zolpidem [Ambien] 5 mg PO HS 10/25/18 05/14/20 fluvoxamine 150 mg PO DAILY 12/23/18 05/14/20 docusate sodium [Dulcolax Stool 100 mg PO DAILY #7 cap 05/14/20 Softener (dss)] levofloxacin [Levaquin] 500 mg PO DAILY #5 tab 05/14/20 Previous Rx's Medication Instructions Recorded docusate sodium [Dulcolax Stool 100 mg PO DAILY #7 cap 05/14/20 Softener (dss)] levofloxacin [Levaquin] 500 mg PO DAILY #5 tab 05/14/20 Allergies Allergy/AdvReac Type Severity Reaction Status Date / Time No Known Allergies Allergy Unverified 05/14/20 10:01 General Stated Complaint: Abd Prob ALEXY: 3 Review of Systems Narrative: No fever, chills, cough. PFSH Social History Smoking/Tobacco Use Status: Never Alcohol Intake: never Drug use: Never Substance use type: does not use Do you feel safe at home: Yes Do you feel safe in your relationship?: Yes Exam Narrative Exam Narrative: GEN: awake, alert, oriented 3. Pleasant, well groomed, intera ctive. HEAD: Normocephalic, atraumatic EYES: PERRL, EOMI NECK: Full ROM, no WALESKA, no menigismus CHEST/RESP: Nontender, clear to auscultation bilateral, no wheeze/rhonchi/rales CARDIOVASCULAR: RRR, no murmur, rub mera. 2+ Rad pulse bilateral ABDOMEN: Soft, nontender, no mass. +Bowel sounds EXT: Full ROM, no edema, no rash Neuro: Grossly normal neurologic exam, conversant, interactive. Psych: Speech fluent, thoughts congruent, affect normal Course Vital Signs Vital signs: Vital Signs Temperature 36.7 C 05/14/20 09:54 Pulse 70 05/14/20 09:54 Respiratory Rate 16 05/14/20 09:54 Blood Pressure 126/75 05/14/20 09:54 Pulse Oximetry 987 H 05/14/20 09:54 Temperature 36.7 C 05/14/20 09:54 Pulse 70 05/14/20 09:54 Respiratory Rate 16 05/14/20 09:54 Respiratory Effort Non-Labored 05/14/20 10:00 Blood Pressure 126/75 05/14/20 09:54 Blood Pressure Position Sitting 05/14/20 09:54 Pulse Oximetry 987 H 05/14/20 09:54 Oxygen Delivery Method Room Air 05/14/20 09:54 Oxygen Flow Rate 0 05/14/20 09:54 Pain Level 2 05/14/20 09:54 Lab/Test Results Lab/Test Results: Laboratory Tests Range/Units 05/14/20 10:02 Urine Color (Yellow) Yellow Urine Clarity (Clear) Clear Urine pH (5-8) 7.5 Ur Specific Alice (1.005-1.025) 1.015 Urine Protein (Negative) mg/dL Negative Urine Ketones (Negative) mg/dL Negative Urine Blood (Negative) Negative Urine Nitrite (Negative) Negative Urine Bilirubin (Negative) Negative Urine Urobilinogen (Up TO 0.2) EU/dL 0.2 Ur Leukocyte Esterase (Negative) Trace H Urine Glucose (Negative) mg/dL Negative
[2020-05-14 10:25] LABS: Bacteria Rare HPF (Negative); Crystals Negative HPF (Negative); Epithelial Cells Negative HPF (Negative); Other Cells Rare Renal (Negative); RBC 0-2 HPF (0-2); WBC 0-2 HPF (0-5)
[2020-05-14 10:26] LABS: C & S Indicated? Yes; Casts Negative LPF (Negative); Mucus Negative (Negative)
--- NOTE | 2020-05-14 10:30 | DI.RAD_ITS ---
EXAM: 2D digital imaging was performed. CLINICAL HISTORY: LOWER ABDPAIN, CONSTIPATION. COMPARISON: No exams were available for comparison TECHNIQUE: Supine views of the abdomen performed. FINDINGS: BOWEL GAS PATTERN: Nondistended. Increased stool in the descending and sigmoid colon. CALCIFICATIONS: No radiopaque calcifications. OSSEOUS STRUCTURES: Normal for age. OTHER FINDINGS: No organomegaly. IMPRESSION: 1. Nonobstructive bowel gas pattern. Increased stool in the descending and sigmoid colon. 2. No radiopaque calculi. DATA REPOSITORY: RADIATION DOSE DELIVERED:
--- NOTE | 2020-05-14 10:34 | DI.VRAD_ITS ---
PROCEDURE INFORMATION: Exam: XR Abdomen, 1 View Exam date and time: 05/14/2020 10:26 AM Age: 24 years old Clinical indication: Abdominal pain; Localized; Lower TECHNIQUE: Imaging protocol: XR of the abdomen. Views: Frontal supine view of the abdomen. 1 View. COMPARISON: CT ABDOMEN PELVIS W 05/03/2020 7:58 PM FINDINGS: Gastrointestinal tract: Constipation in the right colon and left colon Bones/joints: Unremarkable. IMPRESSION: Constipation in the right colon and left colon Dictated and Authenticated by: Yeimy Hughes MD. Ordering:CHARU Gamboa MD
[2020-05-14 10:49] LABS: Abs Immature Grans 0.01 10^3/uL (0.0-0.06); Absolute Basophil Count 0.03 10^3/uL (0.0-0.2); Absolute Eosinophil Count 0.03 10^3/uL (0.0-0.7); Absolute Lymphocyte Count 0.81 10^3/uL (1.2-3.4); Absolute Monocyte Count 0.33 10^3/uL (0.1-0.8); Basophils % 0.9; Eosinophils % 0.9; HGB 13.9 g/dL (13.5-17.5); Immature Grans % 0.3; Lymphocytes % 23.1; MCH 29.6 pg (27.0-33.0); MCHC 33.9 % (32.0-36.0); MCV 87.4 fL (80-95); MPV 9.7 fL (8.0-11.0); Monocytes % 9.4; Neutrophils % 65.4; Nucleated RBC 0 %; Platelet Count 227 10^3/uL (130-400); RBC 4.69 10^6/uL (4.36-5.78); RDW 11.8 % (11.8-14.1); RDW-SD 37.5 fL; WBC 3.51 10^3/uL (4.4-10.8)
[2020-05-14 11:06] LABS: ALT 21 U/L (16-63); AST 14 U/L (15-37); Albumin 4.3 g/dL (3.4-5.0); Alkaline Phosphatase 63 U/L (46-116); Anion Gap 7.9 mmol/L (3-11); BUN 13 mg/dL (7-18); Bilirubin, Total 0.5 mg/dL (0.2-1.0); CO2 29.1 mmol/L (21.0-32.0); CREATININE 1.02 mg/dL (0.70-1.30); Calcium 8.9 mg/dL (8.5-10.1); Chloride 104 mmol/L (98-107); Glucose 94 mg/dL (74-106); Potassium 4.3 mmol/L (3.5-5.1); Sodium 141 mmol/L (136-145); Total Protein 7.3 g/dL (6.4-8.2)
[2020-05-14] MEDS: levoFLOXacin 500 MG TAB PO (11:17)
[2020-05-14 11:18] VITALS: BP 122/68; PULSE 78; RESP 18; TEMP 37.2; O2SAT 98
--- NOTE | 2020-05-14 13:17 | NUR.NOTE ---
copy of referral to care management to establish pcpNursing Note:
--- NOTE | 2020-05-16 13:55 | CMPROGNOTE_ITS ---
- If Service Date Differs Date of service: 05/16/20 Time of Service: 13:55 Care Management Progress Note At the request of ED provider, CM coordinates a referral to Michael Winter MD, on- call doc, of [facility], to assist Scott in establishing care with a local PCP.
== END 2020-05-14 11:19 | disposition home or self-care (01) ==
PROVIDERS: Emergency Provider Emergency Medicine
DX: N39.0 Urinary tract infection, site not specified (principal); K59.00 Constipation, unspecified
CPT/HCPCS: 36415; 80053; 99283; 74018; 81003; 81015; 85025; 87086

== ENCOUNTER 2020-05-24 01:04 | Outpatient (CLI) | payer BC, SELFPAY ==
--- NOTE | 2020-05-24 06:45 | DI.US_ITS ---
EXAM: US RENAL CLINICAL HISTORY: monitoring hydroureter,urinary retention,r33.9,n13.4 TECHNIQUE: Ultrasound performed using standard protocol. COMPARISON: No exams were available for comparison FINDINGS: Kidneys are normal in size and shape. There is no evidence of a renal mass, hydronephrosis, or nephr olithiasis. Urinary bladder volume, prevoid 141 cc, postvoid 53 cc. Ureteral jets were noted bilaterally. No in trinsic bladder abnormality seen. IMPRESSION: Apparent mild bladder outlet obstruction with postvoid residual 53 cc. No abnormality of the upper u rinary tracts seen. DATA REPOSITORY:
== END 2020-05-24 01:24 ==
PROVIDERS: Visit Provider Nurse Practitioner Gerontology
DX: N32.0 Bladder-neck obstruction (principal); R33.9 Retention of urine, unspecified; N13.4 Hydroureter
CPT/HCPCS: 76770